=== PATIENT | female | born 1965 | race Caucasian/White ===

== ENCOUNTER 2016-06-08 11:52 | Emergency (ER) | payer BC ==
--- OUTSIDE RECORDS SUMMARY | 2016-06-08 12:29 | XMS REPORT | Continuity of Care Document ---
:1965 Author Organization [facility] ([facility]) Address [place] [address] Phone [phone] Care Team Providers Name Role Phone Provider, No-Primary Care Primary Care Provider Unavailable Source Comments This disclosure is being made pursuant to the Care Everywhere program, applicable federal and state laws, and may not contain all informaitonavailable regarding this patient.[facility] ([facility]) Active Allergies and Adverse Reactions No Known Allergies Current Medications Prescription Sig. Disp. Refills Start Date End Date Status clonazePAM 2 mg tablet Take 4 mg by Active mouth 2 times daily. traMADol 50 mg tablet Take 50 mg by Active mouth 4 times daily as needed. VITAMIN D2 50,000 unit 07/13/2015 Active capsule carisoprodol 350 mg tablet 07/10/2015 Active methylphenidate 5 mg tablet 15 mg 2 times 08/21/2015 Active daily. PROAIR HFA 90 mcg/Actuation 09/13/2015 Active inhaler olopatadine 0.6 % nasal 09/24/2015 Active spray lamoTRIgine 25 mg tablet 01/10/2016 Active risperiDONE 3 mg tablet 01/10/2016 Active Active Problems Patient Care Coordination Note Jessica Berman is a 50 y.o. female who had a work injury and was found to have an upper border subscap tear with medial dislocation of the long head of biceps tendon. She failed non-op treatment. Sheunderwent right shoulder arthroscopic subscapularis repair and open biceps tenodesis with Dr. Stanley on 08/27/2014. Problem Noted Date 08/28/2015 right subscapularis repair, biceps tenodesis 09/09/2015 Last Assessment & Plan: Formatting of this note may be different from the original. Orders placed this encounter Procedures NON-[facility] CONSULT PT/OT Additional Comments: please see 2-3 times a week for the next four weeks per protocol for standard rotator cuff repair. Order Specific Question: When Desired Answer: First Available NON-[facility] CONSULT PT/OT Please see three times a week for the next four weeks per rotator cuff protocol. Please do not do deep tissue massage to anchor, the anchor is at the proximal humerus and will not be palpable. Order Specific Question: When Desired Answer: First Available Encounter related to worker's compensation claim 06/28/2015 right shoulder Last Assessment & Plan: Jessica Berman has the following activity restrictions: 5 pound push, pull, lift occasionally with right arm. No repetitive reaching away from the body or above chest height with right arm. Right shoulder pain 08/01/2015 Last Assessment & Plan: Ice, OTC medications as needed. Resolved Problems Problem Noted Date Resolved Date PONV (postoperative nausea and vomiting) 08/28/2015 11/08/2015 Social History Tobacco Use Types Packs/Day Years Used Date Current Every Day Smoker 0.25 Smokeless Tobacco: Never Used Tobacco Cessation:Ready to Quit: No; Counseling Given: Yes Comments: Last Filed Vital Signs Vital Sign Reading Time Taken Blood Pressure 117/75 02/18/2016 9:23 AM CDT Pulse 82 02/18/2016 9:23 AM CDT Temperature 36 C (96.8 F) 02/18/2016 9:23 AM CDT Respiratory Rate 16 08/28/2015 7:05 AM CDT Height 1.62 m (5' 3.78") 01/24/2016 8:12 AM CDT Weight 75.9 kg (167 lb 5.3 oz) 02/18/2016 9:23 AM CDT Body Mass Index 28.92 02/18/2016 9:23 AM CDT Oxygen Saturation 98% 08/28/2015 12:09 PM CDT Plan of Care Health Maintenance Due Date Last Done Comments HCV Screening 1965 Hepatitis B Vaccine (1 of 3 - Primary Series) 1965 Tdap Vaccine 02/07/1975 Lipid Disorder Screening 02/07/1982 MMR Vaccine 02/07/1982 Td Vaccine 02/07/1982 Pneumococcal Vaccine (1 of 1 - PPSV23) 02/07/1983 Cervical Cancer Screening 02/07/1994 Mammogram 2004 Colonoscopy 02/07/2014 Influenza Vaccine: Seasonal (#1) 11/18/2015 Results from Last 3 Months Not on file
[2016-06-08 13:16] VITALS: BP 118/76
--- NOTE | 2016-06-08 13:24 | ERNOTE ---
Lower Extremity HPI - Narrative Date of Service: 06/08/16 - General Lower Extremities Pain: hip: left Time Seen by Provider: 06/08/16 12:17 Source: patient, RN notes reviewed, old records Exam Limitations: no limitations - Immun/Allergies/Home Medications Immunizations: IMMUNIZATION HX History of Influenza Vaccine Yes Allergies/Adverse Reactions: Allergies Allergy/AdvReac Type Severity Reaction Status Date / Time No Known Allergies Allergy Verified 06/08/16 12:05 Home Medications: HOME MEDICATIONS Clonazepam 2 mg PO HS 06/08/16 [Last Taken Unknown] Meloxicam 7.5 mg PO DAILY #30 tablet 06/08/16 [Last Taken Unknown] Methylphenidate HCl [Ritalin (Methylphenidate)] 15 mg PO DAILY 06/08/16 [Last Taken Unknown] - History of Present Illness Narrative: 51 y/o female ambulatory to the ED for left hip pain that began about 2 years ago. It was been getting worse over the past few weeks. There was no injury. She made an appointment to see her PCP. This is on 06/12 but she felt that it should be evaluated before then. She takes Tramadol for chronic back pain and has also been taking ibuprofen. None of this is helping. Method of Injury: Reports: no apparent injury Associated Symptoms: Reports: snapping, popping sensation. Denies: unable to bear weight, weakness, sensory loss Review of Systems - Review of Systems Constitutional: Absent: recent illness, fever, chills EYE: Present: no symptoms reported ENT: Present: no symptoms reported Respiratory: Present: no symptoms reported Cardiology: Present: no symptoms reported Gastrointestinal/Abdominal: Present: no symptoms reported Genitourinary: Absent: frequency, dysuria Musculoskeletal: Present: back pain, joint pain. Absent: muscle stiffness, joint swelling Skin: Absent: rash, lesions, lumps Neurological: Absent: weakness, numbness, tingling Endocrine: Present: no symptoms reported Hematologic/Lymphatic: Present: no symptoms reported Psych: Present: no symptoms reported - Patient's Past Medical History Patient History - Medical: ADHD, Chronic Pain - Back Patient History - Cardiac/Respiratory: Asthma Patient History - Cancer: No Hx of Cancer Patient History - Surgical Procedures: Cholecystectomy, Hysterectomy, Tubal Ligation Patient History - Other: None LMP (females 10-50): tubal ligatation - Social History Living Situations: home Psych History: Hx of Anxiety Smoking Status: Current every day smoker Alcohol Use: none Drug Use: none - Immunizations History of Influenza Vaccine: Yes Physical Exam - Physical Exam General Appearance: Present: wd/wn, alert, no apparent distress Neck: Present: normal inspection, nontender, supple Respiratory: Present: no respiratory distress, normal breath sounds, no accessory muscle use, lungs clear Cardiovascular/Chest: Present: regular rate, rhythm, no murmur, normal peripheral pulses Back Exam: Present: normal inspection, normal range of motion, no vertebral tenderness Extremity Exam: Present: normal inspection, no edema, normal range of motion, other - tenderness to left lateral hip over greater trochanter Neurological Exam: Present: alert, oriented, normal mood/affect, no motor/ sensory deficits Skin Exam: Present: normal color, warm/dry ED Progress - Vital Signs Patient's Vital Signs:: I have reviewed the patient's vital signs. Vital Signs: Vital Signs 06/08/16 11:59 Temperature 36.9 C Pulse Rate 94 Respiratory 12 Rate Blood Pressure 114/66 O2 Sat by Pulse 97 Oximetry - X-Ray X-Ray #1 X-Ray: hip Interpretation: Reviewed by me X-ray Comments: No acute osseous abnormality noted - Progress/Reassessment Chief Complaint: Hip Pain/Injury Progress:: Unchanged Plan - Plan Plan: Discussed xray results with patient, instructed to see her PCP as scheduled later this week. Rx for mobic given Departure Clinical Impression: Hip pain, left - Departure Disposition: Home Follow Up Needed Condition: Stable Instructions: Hip Pain, Form - Excuse from Work, School, or Physical Activity Additional Instructions: Do not take ibuprofen, naproxen, Aleve, Motrin, or Advil with your new medication See Dr. Owens as scheduled Referrals: Robert Henson MD [Primary Care Provider] - Prescriptions: Meloxicam 7.5 mg PO DAILY #30 tablet
== END 2016-06-08 14:02 | disposition home or self-care (01) ==
LOC: ER 11:52
DX: M25.552 Pain in left hip (principal); Z72.0 Tobacco use

== ENCOUNTER 2016-08-07 09:38 | Day surgery (SDC) | payer BC ==
[~2016-08-07 09:38] MED LIST: RINGERS SOLUTION,LACTATED 1,000 ML IV PRN
--- OUTSIDE RECORDS SUMMARY | 2016-08-07 09:41 | XMS REPORT | Continuity of Care Document ---
:1965 Author Organization [facility] ([facility]) Address [place] [address] Phone [phone] Care Team Providers Name Role Phone Provider, No-Primary Care Primary Care Provider Unavailable Source Comments This disclosure is being made pursuant to the Care Everywhere program, applicable federal and state laws, and may not contain all informaitonavailable regarding this patient.[facility] ([facility]) Active Allergies and Adverse Reactions No Known [...] the original. Orders placed this encounter Procedures NON-[facility] CONSULT PT/OT Additional Comments: please see 2-3 [...] PONV (postoperative nausea and vomiting) 08/28/2015 11/08/2015 Most Recent Encounters Date Type Specialty Providers Description 06/26/2016 Telephone Orthopaedic Jac Stanley MD Chief Comp: Forms and Letters Requests Social History Tobacco Use Types Packs/Day Years [...] Mammogram 2004 Colonoscopy 02/07/2014 Influenza Vaccine: Seasonal (Season Ended) 2016 Results from Last 3 Months Not on file
[2016-08-07] MEDS ORDERED: RINGERS SOLUTION,LACTATED 1,000 ML IV ONE (10:22)
--- NOTE | 2016-08-07 11:36 | OR ---
Operative Report - Dictated Report Narrative: Date: 08/07/2016 Attending surgeon: Ralph Lemus MD Proctoring surgeon: Shweta Waite MD Procedure: Colonoscopy Preoperative diagnosis: Personal history of polyps, family history of colon CA Postoperative diagnosis: pancolonic diverticulosis Description of procedure: After informed consent was obtained and appropriate premedication had been given the patient was placed in the left lateral decubitus position and a flexible fiberoptic video colonoscope was introduced the external anus was unremarkable. The scope was advanced without difficulty under direct vision to the cecum. The usual landmarks were identified. Preparation was excellent and excellent views were obtained. Findings were again colonic diverticulosis and beyond that there was a normal cecum, there was a normal ascending colon, normal hepatic flexure, normal transverse colon, normal splenic flexure, normal descending colon, normal sigmoid colon, normal rectum, retroflexed view of the anus was normal. The mucosal collar, vasculature, and texture were normal throughout. No suspicious mass lesions were seen. Patient tolerated the procedure well without apparent complications and was discharged from the endoscopy suite to recovery in stable condition. Recommendations: Cologuard or colonoscopy in 5 years.
[2016-08-07 12:47] VITALS: BP 107/68
== END 2016-08-07 09:39 | disposition home or self-care (01) ==
LOC: AMB 09:38
PROVIDERS: ATTEND Specialist
PROC: 0DJD8ZZ Inspection of Lower Intestinal Tract, Via Natural or Artificial Opening Endoscopic (ICD-10-PCS; principal; 2016-08-07 10:15)
DX: Z12.11 Encounter for screening for malignant neoplasm of colon (principal); K57.30 Diverticulosis of large intestine without perforation or abscess without bleeding; J45.20 Mild intermittent asthma, uncomplicated; E55.9 Vitamin D deficiency, unspecified; Z86.010 Personal history of colon polyps; Z80.0 Family history of malignant neoplasm of digestive organs; F17.210 Nicotine dependence, cigarettes, uncomplicated; Z68.28 Body mass index [BMI] 28.0-28.9, adult